=== PATIENT | male | born 1975 | race Caucasian/White ===

== ENCOUNTER 2018-10-04 10:47 | Outpatient (CLI) | payer OTHER | END 2018-10-04 10:48 | disposition home or self-care (01) | LOC: SC 10:47 | PROVIDERS: ATTEND Internal Medicine Pulmonary Disease | DX: R06.81 Apnea, not elsewhere classified (principal); G47.10 Hypersomnia, unspecified; G47.8 Other sleep disorders; R41.89 Other symptoms and signs involving cognitive functions and awareness; R06.83 Snoring | CPT/HCPCS: 99203; 99212 ==

== ENCOUNTER 2018-10-20 20:26 | Outpatient (CLI) | payer OTHER | END 2018-10-20 20:27 | disposition home or self-care (01) | LOC: SC 20:26 | PROVIDERS: ATTEND Internal Medicine Pulmonary Disease | DX: R06.83 Snoring (principal); R06.81 Apnea, not elsewhere classified; R51 Headache | CPT/HCPCS: 95810 ==

== ENCOUNTER 2018-11-11 09:41 | Outpatient (CLI) | payer OTHER | END 2018-11-11 09:42 | disposition home or self-care (01) | LOC: SC 09:41 | PROVIDERS: ATTEND Internal Medicine Pulmonary Disease | DX: G47.00 Insomnia, unspecified (principal) | CPT/HCPCS: 99212; 99213 ==